=== PATIENT | male | born 1970 | race African-American/Black ===

== ENCOUNTER 2016-10-31 07:00 | Inpatient (IN) | payer OTHER ==
[2016-10-31] VITALS (34 sets, daily range): BP systolic 86–143; BP diastolic 59–89; PULSE 68–96; RESP 15–22; O2SAT 94–100
[~2016-10-31] VITALS: Ht 172.7 cm; Wt 94.2 kg
--- NOTE | 2016-10-31 06:53 | ED.REPORT ---
HPI-Chest Pain 40 and Over Date of Service Oct 31, 2016 ED Provider: Brien Lord MD Pt is a 46 y.o. male who presents to the ED via EMS c/o severe chest pain upon waking up. EMS administered 4000 units Heparin, 8mg Morphine, 324mg ASA, 300 ml NS, and Plavix en route. Upon arrival to the ED pt states pain is improved and currently rates it at 6/10. He reports associated SOB due to pain. Pt denies any cardiac hx, he does state he is an everyday current smoker. who accompanies pt reports that he is an everyday ETOH user and may have withdrawal sx. Nursing Notes Stated Complaint: CHEST PAIN Nursing Notes Reviewed: Yes Allergies: Coded Allergies: No Known Allergies (Unverified , 10/31/16) General Time Seen by MD: 06:53 Chief Complaint Chest pain Hx Obtained From: Patient, Spouse, EMS Arrived By: Ambulance Sudden in Onset?: Yes Onset Occurred: Just prior to arrival Context of Onset: Sleeping Symptom Duration: Since onset Severity: Current: Pain level 6 out of 10 Severity: Maximum: Severe Similar Sx Previous: No Past Medical History Past Medical History None reported Denies: Congestive heart failure, Coronary artery disease Denies: Kidney disease Past Surgical History None reported Smoking History Current Every Day Smoker Social History Alcohol Use: 3-5 per day Other Social History: Ambulatory Status Independent Review of Systems Constitutional: Denies: Fever Respiratory: Reports: Shortness of breath Cardiovascular: Reports: Chest pain GI: Denies: Vomiting Complete sys rev & neg: except as marked. Physical Exam Initial Vital Signs Vital Signs (First) Date Time Temp Pulse Resp B/P Pulse Ox O2 Delivery O2 Flow Rate FiO2 10/31/16 07:00 96 22 143/86 100 Nasal Cannula 2 10/31/16 08:45 36.7 Initial VS: Reviewed Head / Eyes: Atraumatic, Normocephalic Extremities: Vascular intact, Neuro intact Neurologic: Alert, Oriented, Nonfocal Psychiatric: Mood/affect normal, Behavior normal, Normal thought content General/Constitutional: Awake, Alert, Well appearing, Well developed, Well hydrated, Well nourished, Not toxic appearing Behavior: Positive: Anxious Respiratory / Chest: Atraumatic, Breath sounds NL, Breath sounds = bilat, No respiratory distress Cardiovascular: Heart rate NL, Peripheral circulation NL Abdomen: Atraumatic, No distention Skin: Atraumatic, No rash, Warm, Intact Color / Condition: Positive: Diaphoresis present Interpretation & Diagnostics Lab Results Interpretation Result Diagram: 10/31/16 0700 10/31/16 0700 Test 10/31/16 07:00 White Blood Count 12.0th/mm3 (3.8-10.1) Red Blood Count 4.71mil/mm3 (4.40-5.80) Hemoglobin 14.7g/dL (13.8-17.2) Hematocrit 43.7% (41.0-50.0) Mean Corpuscular Volume 92.8fL (81-100) Mean Corpuscular Hemoglobin 31.2pg (27.0-35.0) Mean Corpuscular Hemoglobin Concent 33.6% (32.0-37.0) Red Cell Distribution Width 14.1% (12.3-15.4) Platelet Count 243bil/L (150-400) Neutrophils (%) (Auto) 72.4% (40-74) Lymphocytes (%) (Auto) 17.6% (14-46) Monocytes (%) (Auto) 8.8% (4-12) Eosinophils (%) (Auto) 0.7% (0-5) Basophils (%) (Auto) 0.2% (0-3) Prothrombin Time 10.7sec (8.1-12.5) Prothromb Time International Ratio 1.00ratio Sodium Level 141mEq/L (134-144) Potassium Level 3.8mEq/L (3.5-5.2) Chloride Level 105mEq/L (97-108) Carbon Dioxide Level 19mmol/L (18-29) Blood Urea Nitrogen 11mg/dL (6-24) Creatinine 1.15mg/dL (0.76-1.27) Estimat Glomerular Filtration Rate 72mL/min (>59) Glucose Level 92mg/dL (60-99) Calcium Level 9.3mg/dL (8.5-10.1) Magnesium Level 2.2mg/dL (1.6-2.6) Total Bilirubin 0.4mg/dL (0.0-1.2) Aspartate Amino Transf (AST/SGOT) 35U/L (0-50) Alanine Aminotransferase (ALT/SGPT) 22U/L (0-44) Alkaline Phosphatase 88U/L (25-150) Troponin T < 0.010ug/L (0.0-0.011) Total Protein 7.1g/dL (6.4-8.4) Albumin 4.1g/dL (3.4-5.0) Hold Seymour Top Tube Received (Received) Digoxin Level 0.3nG/mL (0.9-2.0) ECG Interpretation Time: 07:00 Interpreted by: ED physician Normal ECG Interpretation: Normal rate (89) Abnormal T wave or ST segment: STEMI inferior wall Re-Eval/Medical Decision Source of Hx: Old records Consultation : Referral / Consult Name: Toi Bello MD Consulted With: Cardiology Call Returned at: 07:12 Teacher Hearing Impaired: Requested field laboratory operator, Accepts admit Note: Consulted with Dr. Bello who reviewed pt's EKG's. Dr. Bello will take the pt to the field laboratory operator. Counseled Regarding: Diagnosis, Need for admission Discharge & Departure Primary Impression: STEMI (ST elevation myocardial infarction) Involved coronary artery: unspecified coronary artery Qualified Code: I21.3 - ST elevation (STEMI) myocardial infarction of unspecified site Disposition: ADMITTED TO HOSPITAL Discharge Condition All VS Reviewed: Yes Condition: Improved Crit Care Except Billable Proc Time Spent: 30-74 minutes Services Performed: Patient management by me, Time spent at bedside, Reviewing test results, Discussing patient care, Documentation in record, Time with fam/ surrogate Scribe Attestation Portions of this note were transcribed by Alissa Lucas. I, Dr. Lord personally performed the history, physical exam and medical decision-making; I reviewed and confirmed the accuracy of the information in the transcribed note. Signed by: Dayami Mijares, 10/31/16 and 0833. Brien Lord MD Oct 31, 2016 06:53 ALISSA LUCAS Oct 31, 2016 07:12
[~2016-10-31 07:00] MED LIST: Heparin 25,000 Unit/500 mL 0.45% NS Premix IV ONE; Heparin 5,000 Unit/mL Inj ONE
[2016-10-31] MEDS ORDERED: Heparin 1,000 Units/500 mL NS Premix IV ONE (07:04)
[2016-10-31] MEDS ORDERED: Phenylephrine/NS-PF 100 mCg/mL 5 mL Syringe IVPUSH ONE (07:04)
[2016-10-31] MEDS ORDERED: Nitroglycerin 50,000 mcg/250 mL D5W Premix IV ONE (07:04)
[2016-10-31] MEDS ORDERED: Heparin 1,000 Unit/mL 10 mL Inj ONE ×2 (07:04→07:05)
[2016-10-31] MEDS ORDERED: 0.9% Sodium Chloride 2,000 ML ONE (07:04)
[2016-10-31] MEDS ORDERED: Atropine 1 mg/10 mL (Code) Syringe ONE (07:04)
[2016-10-31] MEDS ORDERED: Heparin 1,000 Units/mL 10 mL DVT/PE Bolus Inj IVPUSH ONE (07:05)
[2016-10-31 07:16] LABS: BASOPHILS % (AUTO) 0.2 % (0-3); EOSINOPHILS % (AUTO) 0.7 % (0-5); MONOCYTES % (AUTO) 8.8 % (4-12); Mean Corpuscular Hemoglobin 31.2 pg (27.0-35.0); Mean Corpuscular Volume 92.8 fL (81-100); NEUTROPHILS % (AUTO) 72.4 % (40-74); Platelet Count 243 bil/L (150-400)
[2016-10-31 07:59] LABS: Magnesium 2.2 mg/dL (1.6-2.6)
[2016-10-31 08:00] LABS: TROPONIN T < 0.010 ug/L (0.0-0.011)
--- NOTE | 2016-10-31 08:50 | NUR ---
Arrival to CCU Pt escorted from lab assistant to room 2018. Denies pain at time of arrival to unit. SR with infrequent PVCs per groundwater monitoring technician. Pressure stable. Rt femoral arterial line in place. No s/s of active bleeding. Pulses intact. Patient oriented to room and call light. Activity restrictions and plan of care reviewed at bedside. Will continue to monitor.
[2016-10-31] MEDS ORDERED: 0.9% Sodium Chloride 400 ML (4 HRS) IV ONE (09:15)
[2016-10-31] MEDS ORDERED: Ondansetron 2 mg/mL 2 mL Inj IVPUSH PRN (09:15)
[2016-10-31] MEDS ORDERED: 0.9% Sodium Chloride 250 ML BOLUS IV PRN (09:15)
[2016-10-31] MEDS ORDERED: Sodium Chloride LOK Flush 10 mL Syringe IVFLUSH PRN (09:15)
[2016-10-31] MEDS ORDERED: Atropine 1 mg/10 mL (Code) Syringe IVPUSH PRN (09:15)
--- NOTE | 2016-10-31 10:53 | CS94 ---
[address] [address] DIAGNOSTIC CARDIAC CATHETERIZATION PATIENT: TRISTAN SARGENT : 1970 MR#: [id number] ADMIT: 10/31/2016 JOB ID: [id number] PROCEDURE NOTE-CARDIAC CATHETERIZATION LABORATORY: SERVICE DATE: Monday, October 31, 2016. STOCK RAISER: Toi Bello M.D. PROCEDURES: 1. Coronary angiogram--emergent. 2. Left heart catheterization (LHC)--pressure measurement. 3. Percutaneous coronary intervention (PCI): a. Stent of mid RCA--a Xience 2.5 x 18 mm RICK (drug-eluting stent); post dilated to 2.75 mm. CLINICAL DETAILS: This 46-year-old man with no prior history of heart disease; but with underlying coronary risk factors including current cigarette smoking--awoke with very severe retrosternal chest discomfort about 5-1/2 hours prior to presentation to this hospital by EMS transport. He had ongoing nitngqcn-vg-[id number] chest discomfort; and ECG shows inferior ST elevation with confirmatory reciprocal lateral ST depression. He was otherwise clinically stable. PROCEDURAL DETAILS: I evaluated him emergently in the emergency department. I discussed our findings, impressions and management considerations including recommendation to proceed emergently to cardiac catheterization for definitive diagnosis of anticipated coronary disease and to guide management or treatment decisions including medical therapy, anticipated PCI or coronary bypass surgery if needed. We discussed the procedure including possible risks and complications. We discussed bleeding, infection and blood clots; as well as injury to nerve, artery, vein or kidney; and also arrhythmia, drug reaction; or others. We discussed treatment as needed that might include surgery, pacemaker, transfusion. We discussed more serious complications that are possible including stroke, heart attack, cardiac arrest, and emergency surgery including transfer for coronary bypass. We discussed stents including stent failure and repeat PCI procedures that may be needed; and also critical importance of dual antiplatelet therapy. He is a candidate for RICK. After questions and discussion, he signed informed consent to proceed. He was brought to the catheterization laboratory where he was prepped sterilely and draped for the procedure. He had received ECASA and a heparin bolus IV; and Plavix 300 mg p.o. CORONARY ANGIOGRAM: Arterial access was obtained without difficulty in the right common femoral artery using fluoroscopic localization over the femoral head; and modified Seldinger technique to insert a 10 cm 6-Tamazight side-arm sheath. Catheters were advanced and exchanged over a long 0.035 inch J tipped guidewire. For coronary angiography, the right coronary artery was first engaged with a 6-Tamazight JL-4 guide catheter. At the end of the procedure, the left coronary artery was imaged using a 6-Tamazight JL-4 diagnostic catheter. LHC: The JR-4 catheter across the aortic valve incidentally into the left ventricle and pressures were measured. No LV angiogram done. PCI of mid RCA: The diagnostic images were reviewed. Decision was made to proceed emergently with revascularization of the subtotally, occluded mid RCA culprit lesion (99% lesion; ORIANA 1-2 flow). For intervention he was given an additional loading dose of Plavix 300 mg (600 mg Plavix loading dose total). Bolus IV heparin was used to achieve therapeutic ACT. Aliquots of NTGIC were used during the procedure. For intervention, the 6-Tamazight JR-4 guide was used. The lesion was crossed without difficulty with a BMW wire--0.014 inches x 190 cm--which was placed distally in the right coronary artery. PREDILATATION: The lesion was predilated with a Trek balloon--2.5 x 15 mm--inflated to 8 atmospheres. Flow in the artery was improved. STENT: Next the lesion was treated with a Xience Alpine RICK--2.5 x 18 mm--deployed across the lesion at 18 atmospheres. POSTDILATATION: The stented segment was post dilated with a noncompliant Trek NC balloon--2.5 x 12 mm--inflated twice within the stented segment to 22 atmospheres. Completion angiograms show an excellent angiographic result with ORIANA-3 flow restored including a strong myocardial blush; no residual lesion; and no angiographic complication evident. PROCEDURE WITHOUT DIFFICULTY: Patient tolerated procedure well. No complication. A side-arm sheath angiogram showed a very high bifurcation of the common femoral artery nearly at the upper border of the femoral head including arterial access in the profunda artery. Arterial hemostasis was deferred and the sheath was sutured in place to be maintained to flush an arterial pressure transducer until removed when ACT less than 180 seconds. The patient was transferred from the catheterization laboratory having become chest pain free when the artery was opened; and in critical but now stable condition for transfer to the CCU unit for ongoing care. I discussed the procedure, findings and recommendations with the patient and with his fiancee. FINDINGS: LMCA: Normal. The left main coronary artery is a short vessel with no angiographic obstructive disease. LAD: Intact. The left anterior descending coronary artery is a zzelukax-zc-pwakn size transapical vessel with mild diffuse atherosclerotic plaquing but no angiographic obstructive lesions. LCX: Normal. The left circumflex artery is a large artery with no evident disease. Its distribution includes three small obtuse marginals and a distal copfqhaw-by-vopoa LPL branch. RCA: Dominant. 99% tubular mid RCA lesion with ORIANA 1-2 flow is present. When revascularized, the right coronary artery distribution includes a medium-sized PDA and a medium-sized RPL branch. LHC: LVED 35 mmHg; SBP 100 mmHg with no systolic gradient on pullback across the aortic valve. CONCLUSIONS: 1. PCI of mid RCA--Xience Alpine RICK 2.5 x 18 mm; post dilated to 2.75 mm at high pressure. 2. ACS--acute inferior STEMI; including subtotal culprit subtotal mid RCA occlusion. 3. CORONARY ARTERY DISEASE (CAD)--single vessel CAD of mid RCA. RECOMMENDATIONS: 1. ECASA--indefinitely. 2. Plavix--plan one year if well tolerated including ongoing cardiology followup. I discussed with the patient and his family the critical importance of mandatory dual antiplatelet therapy; and not to stop Plavix for any reason without immediate Cardiology consultation. 3. ECHOCARDIOGRAM. 4. OMT--guideline directed optimal medical therapy for coronary disease; and for underlying coronary risk factors; including aspirin, Plavix statin, beta-ary, consideration of RASHI inhibitor. We also discussed smoking cessation.
--- NOTE | 2016-10-31 11:22 | HP ---
[address] [address] HISTORY AND PHYSICAL PATIENT: TRISTAN SARGENT : 1970 MR#: [id number] ADMIT: 10/31/2016 JOB ID: [id number] CARDIOLOGY ADMISSION HISTORY AND PHYSICAL--INITIAL CRITICAL CARE EVALUATION (EMERGENCY DEPARTMENT): DATE OF EVALUATION: Monday, October 31, 2016. ADMITTING PHYSICIAN: Cardiology--Toi Bello M.D. PROBLEMS: 1. Acute coronary syndrome (ACS): a. Chest pain--severe ongoing retrosternal chest tightness; ischemic time 5-1/2 hours from onset. b. STEMI--acute inferior myocardial infarction CAD RISK FACTORS: No history of treated hypertension. No history of treated hyperlipidemia. No history of diabetes. Cigarettes--Current smoker 1/2 to 1 pack per day. No family history of premature coronary disease. CHIEF COMPLAINT: Called for "STEMI activation." Chest pain. Abnormal ECG with STEMI inferior. HISTORY OF PRESENT ILLNESS: PRESENTATION: I was called by the emergency department physician regarding this 46-year-old man after they were just notified that he was in transit by EMS from an outside hospital with ongoing chest pain and ST elevation on ECG. I evaluated him emergently shortly after his arrival in our emergency department. He has ongoing chest discomfort that he rates intensity 5 on a scale of 10--but it is clear he has severe discomfort. 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 The first onset of illness was 1:30 this a.m. when he was awoken with a "gas bubble in my chest." He went to the bathroom where he became severely ill and "I didn't think I was going to make it." There was radiation of pressure-like chest discomfort into his neck and profuse diaphoresis and nausea and shortness of breath and dizziness. Pre-hospital treatment included ASA and MSO4 and NTG twice. He rates his pain as moderate now. In our emergency department, he received heparin IV bolus once and further MSO4. CARDIAC HISTORY: He tells me he has not had any prior anginal symptoms and he has no symptoms of heart failure including exertional dyspnea, nocturnal dyspnea or edema. He has no history of arrhythmia and no definite history of arrhythmic symptoms although he tells me he occasionally has fleeting palpitations and what he considers occasional episodes of dizziness but never syncope. Regarding other possible underlying vascular disease, there is no history of CVA or current symptoms of TIA. No claudication. Regarding possible dual antiplatelet therapy, he tells me he would be reliable to take mandatory medicines if needed; he has no current bleeding symptoms; and he has no anticipated upcoming surgery. ALLERGIES: No known drug allergies. He reports no known allergy to contrast media; or to fish, seafood, iodine or shellfish. MEDICATIONS: He takes no medicines normally. PAST MEDICAL HISTORY: He tells me he is generally healthy and is not aware of any underlying medical problems. REVIEW OF SYSTEMS: I questioned him and his fiancee in the emergent setting about a 13 point review of systems which is unremarkable, noncontributory or negative except as noted including: No constitutional symptoms. No history of a thyroid disorder. No history of a lung disorder including no history of asthma, wheezing, COPD, emphysema or chronic dyspnea. Cardiac--no history of murmur or rheumatic fever. GI--no history of hepatitis, ulcer, jaundice or indigestion. PERSONAL AND SOCIAL HISTORY: CIGARETTES--he smokes "heavily"; about a half to a pack of cigarettes a day for unknown duration. ALCOHOL--his fibille tells me that he drinks part of a fifth of alcohol a night after a hard day's work and because of back pain. He has never had sequelae of alcohol use that they are aware of including no history of withdrawal. FAMILY--his deriane is here. WORK--he is a computer analyst supervisor and works vigorously. FAMILY HISTORY: He reports no family history of premature coronary disease. PHYSICAL EXAMINATION: GENERAL APPEARANCE: A very pleasant, robust man who appears to be in severe pain despite his description of only moderate discomfort. VITAL SIGNS: Blood pressure initially 143/86 with heart rate 96, regular in sinus rhythm on telemetry. Respiratory rate 20 and unlabored. Pulse oximeter 100% on nasal cannula 2 L. Weight 190 pounds, afebrile. NEUROLOGIC AND MENTAL STATUS: No overt focal neurologic defect noted. He is alert, oriented, appropriate and conversant. HEENT: PERRL. Conjunctivae pink. Sclerae not icteric. Mouth and mucous membranes intact with Mallampati 4. NECK: Carotid upstroke intact bilaterally without bruit. Jugular venous pressure unremarkable. Examined sitting up. No palpable thyromegaly. No palpable cervical lymphadenopathy. LUNGS: Lungs clear to auscultation bilaterally including with forced expiratory time. CARDIAC: No chest wall tenderness. Heart examination notable for a regular rhythm, S4, and there is no loud murmur heard. ABDOMEN: Somewhat obese, but otherwise unremarkable examination without tenderness, mass, hepatosplenomegaly or bruit of abdominal aortic aneurysm. EXTREMITIES: No edema. Pedal pulses intact bilaterally at the dorsalis pedis and posterior tibial except the right dorsalis pedis not palpable. DIAGNOSTIC STUDIES: ELECTROCARDIOGRAM: I reviewed the pre-hospital EMS ECG and the initial ECG in our ED. They show sinus rhythm at 85 BPM with 2-[address] elevation inferiorly with confirmatory reciprocal ST depression in leads I and aVL. There is also subtle precordial ST flattening/depression in V1-3. CHEST X-RAY: The x-ray machine did not work. LABORATORY: CBC includes WBC 12,000 with hemoglobin 14.7, hematocrit 43.7, normal indices, and platelet count 243,000. Inexplicably digoxin level 0.3. INR 1. Chemistries include potassium 3.8, BUN 11, creatinine 1.15, estimated GFR 72. Blood sugar 92, magnesium 2.2. LFT unremarkable. Troponin less than 0.010. TSH 1.410 with free T4 1.60 (noting his apparent proptosis on examination). ASSESSMENT: I discussed the findings, impressions and management considerations with him and his fiancee and with the emergency department staff including: Acute coronary syndrome with inferior STEMI and ongoing severe chest pain: The clinical scenario is classic for acute myocardial infarction. He is clinically stable otherwise. I discussed with him and his fiancee the impression of the recommendation to proceed emergently with a coronary angiogram for definitive diagnosis of highly likely CAD with right coronary artery culprit; and to guide therapy including medical therapy, anticipated PCI; or transfer for coronary bypass if needed. We discussed the procedure including possible risks and complications. PLAN: 1. Cardiac catheterization and anticipated PCI--emergent. 2. Echocardiogram. 3. OMT--guideline directed optimal medical therapy for his underlying risk factors including cigarette smoking cessation; and for anticipated CAD. 4. He has no regular medical care; and we discussed the importance of establishing ongoing primary medical care as well as cardiology followup.
--- NOTE | 2016-10-31 13:23 | DRSVH ---
PROCEDURE: X-RAY CHEST ONE VIEW, PORTABLE ([id number]) INDICATIONS: PORT TECHNIQUE: One view of the chest was acquired. COMPARISON: None. FINDINGS: Surgical changes and devices: None. Lungs and pleura: No pleural effusions or pneumothorax. Lungs are clear. Mediastinum: Mediastinal contours appear normal. Heart size is normal. Bones and chest wall: No suspicious bony lesions. Overlying soft tissues appear unremarkable. IMPRESSION: 1. No acute cardiopulmonary disease. Dictated by: Torres Pratt M.D. on 10/31/2016 at 13:18 Approved by: Torres Pratt M.D. on 10/31/2016 at 13:22
[2016-10-31] MEDS ORDERED: IBUP800T28 PO (15:26)
--- NOTE | 2016-10-31 15:26 | DRSVH ---
[facility] [address] [place] [address] Echocardiogram Report Name: TRISTAN SARGENT Study Date: 10/31/2016 Height: 68 in Hospital Exam Location: [facility] Weight: 190 lb Gender: Other BSA: 2.0 m2 : 1970 Age: 46 yrs BP: 135/84 mmHg Referring Physician: BRIAN HURT Interpretation Summary Normal sinus rhythm. Normal LV size, wall thickness and LV systolic function. EF is 55-60%. There is subtle inferoseptal hypokinesis; otherwise normal wall motion throughout. No significant valvular abnormalities. Borderline LA enlargement; otherwise normal chamber sizes. No prior echocardiogram available for comparison. Procedure: A two-dimensional transthoracic echocardiogram with color flow and Doppler was performed. The study quality was technically adequate. There is no prior echocardiogram noted for this patient. The patient was in normal sinus rhythm during the exam. Left Ventricle: The left ventricle is normal in size. There is normal left ventricular wall thickness. The ejection fraction is estimated to be 55-60%. subtle inferoseptal hypokinesis. Assessment of diastolic parameters indicates normal left ventricular diastolic function and normal filling pressures. Right Ventricle: The right ventricle grossly appears normal in size with probable normal systolic function. Atria: Borderline left atrial enlargement. Right atrial size is normal. The interatrial septum is intact with no evidence for an atrial septal defect. Mitral Valve: The mitral valve is normal in structure and function. Aortic Valve: The aortic valve is trileaflet. The aortic valve opens well. Tricuspid Valve: The tricuspid valve is normal in structure and function. There is a trace or physiologic amount of tricuspid regurgitation. The right ventricular systolic pressure is estimated at 26 mmHg assuming a right atrial pressure of 3 mm Hg. Pulmonic Valve: The pulmonic valve is normal in structure and function. There is trace pulmonic regurgitation. Great Vessels: The aortic root is normal size. The dimensions of the ascending aorta are normal. The IVC is of normal diameter and collapses greater than 50% with a sniff. This suggests a low right atrial pressure of 3 mm Hg. Pericardium/ Pleura There is no pericardial effusion. There is no pleural effusion. MMode/2D Measurements & Calculations LVIDd: 5.3 cm LA dimension: 4.1 cm RA long axis Ao root diam LVIDs: 3.7 cm FS: 29.2 % LA A2 area: 17.7 cm RA area Aortic Jxn: 3.1 cm IVSd: 0.91 cm LA A4 area: 19.5 cm Ao Arch Diam (Prox LVPWd: 0.82 cm LA length (vol) : 16.3 cm Trans): 2.6 cm RA vol LA vol: 59.4 ml : 43.6 ml LA vol index RA : 21.8 mm2 : 29.7 ml/m2 LV marcano. diameter/BSA LV sys. diameter/BSA (cm/m^2): 2.6 (cm/m^2): 1.9 Doppler Measurements & Calculations Ao V2 max MV E max garcia MV E/A: 1.4 TR max garcia : 144.3 cm/sec : 112.8 cm/sec Med Peak E' Garcia : 243.5 cm/sec Ao max PG MV A max garcia TR max PG : 8.3 mmHg : 79.4 cm/sec E/E' med: 13.7 : 23.7 mmHg Ao mean PG MV P1/2t: 49.2 msec Lat Peak E' Garcia PA V2 max : 4.3 mmHg : 72.2 cm/sec E/E' lat: 11.4 PA mean PG E/e' average: 12.6 MV A dur: 0.11 sec PA Accel Time : 0.12 sec MV dec time MV P1/2t max garcia Ao V2 mean PA V2 mean : 0.17 sec : 97.3 cm/sec : 50.8 cm/sec Ao V2 VTI: 26.9 cm MVA(P1/2t): 4.5 cm2 Reading Physician:03:25 PM
--- NOTE | 2016-10-31 18:43 | NUR ---
Cardiac/pain Right femoral site without complications. Site remains painless, with no sign of active bleeding or hematoma. Pulses intact. Patient denies chest discomfort. SR per monitor technician. 3 to 4 beat run of VT noted earlier this afternoon, pt asymptomatic. Normotensive. Tolerating diet. Family remains at bedside. Continue to address financial concerns prior to discharge.
[2016-10-31] MEDS ORDERED: Influenza (Adult) Vaccine 0.5 mL Syringe IM ONE (20:30)
--- NOTE | 2016-10-31 23:21 | NUR ---
Transfer note: Pt right groin site soft with no drainage seen. Area is tender to palpation and bruised. 2129 pt up out of bed with out any problems. 2229 Dr Bello was paged and orders received to transfer pt to [facility] with tele. Report given to Ellen FORRESTER.
[2016-11-01 03:03] VITALS: BP 116/77; PULSE 74; RESP 22; O2SAT 93
[2016-11-01 04:49] LABS: Mean Corpuscular Hemoglobin 31.1 pg (27.0-35.0); Mean Corpuscular Volume 93.9 fL (81-100)
--- NOTE | 2016-11-01 06:31 | NUR ---
Patient education Discussed smoking cessation and anxiety/stress management with patient and family. Also discussed and answered questions about lifestyle changes including heart healthy diet. Pt and stated understanding. Addendum: 11/01/16 at 0633 by EVERARDO JERONIMO RN Nicotine patch requested by pt. Dr. Bello paged and orders received.
[2016-11-01 08:00] VITALS: BP 112/75; PULSE 68; RESP 18; O2SAT 95
--- NOTE | 2016-11-01 09:24 | NUR ---
Social Work Note: Scree Note Data& Assessment: EMR reviewed. Lia Esparza is a 46 year old male admitted on 10/31/2016for STEMI. Pt is listed as self pay and per [facility] documentation, pt is not eligible for state insurance. Pt does not have a PCP at this time either. Pt lives in [place] with his family. Pt is currently a 1PA in his room. SW to follow up with pt regarding baseline ambulation and strength, insurance coverage and PCP. SW to continue to follow. Plan: Anticipated discharge home via POV when medically ready. SW to follow up with pt regarding baseline ambulation and strength, insurance coverage and PCP. SW to continue to follow. GALLO Argueta
[2016-11-01 11:45] VITALS: BP 140/88; PULSE 85; RESP 20; O2SAT 98
--- NOTE | 2016-11-01 11:46 | NUR ---
Social Work Note: Continued Discharge Planning Data& Assessment: SW met with pt and pt family at bedside to assess for any unmet needs. Pt confirmed that he does not have a PCP provider and he is in the process of moving to [place] with his family and would like to find a provider here in town. Pt also confirmed that he does not have insurance. Pt explained that "I've never been sick before, so I never got insurance." Pt explained that when he did try to look into obtaining insurance coverage, open enrollment had already passed. Pt has not been screened by [facility] for Medicaid eligibility at this time since it is the weekend. SW provided pt and pt family with [employer] contact information for further aid in obtaining insurance coverage or at least be more informed about which insurance to sign up for this fall during open enrollment. SW provided pt with financial assistance application. Pt family has concerns regarding prescription costs. Pt family stated they have informed the MD. SW also provided information on the $4 medication list to reference in order to advocate for generic brands if possible. SW provided information on the [facility]. The clinic is closed today. If pt is still hospitalized tomorrow (Wednesday), SW to inquire about the possibility of pt obtaining a PCP appointment at [facility]. Pt and pt family deny any other need at this time. SW to continue to follow. Plan: Anticipated discharge home via POV when medically ready. SW to follow for [employer] screening for Medicaid eligibility. SW to also follow up with pt and [facility] regarding the possibility of pt obtaining a PCP appointment prior to DC. Pt and pt family deny any other need at this time. SW to continue to follow. GALLO Argueta
--- NOTE | 2016-11-01 14:11 | PCM.DIMED ---
Discharge Instructions Date of Service Nov 01, 2016 Dates of Hospitalization Oct 31, 2016 at 09:05 Discharge Diagnosis Discharge Diagnosis Heart Attack due to coronary artery disease was treated with a Drug Coated Stent. Also High Blood Pressure; and high colesterol. Medication Instructions New medicines are important as we discussed. Especially Plavix is mandatory as we discussed. Diet Heart Healthy Activity Limited until seen by PCP Call your provider Shortness of breath, Chest pain Patient Instructions Follow-up Provider: [facility] includes the [facility] Follow-up with PCP in: 1 week [facility] Follow-up in: 1 week Toi Bello MD Nov 01, 2016 14:11
[2016-11-01] MEDS ORDERED: CLOP75TA28 PO (14:16)
[2016-11-01] MEDS ORDERED: METO25TA6 PO (14:16)
[2016-11-01] MEDS ORDERED: NICO1PAT5 TOPICAL (14:16)
[2016-11-01] MEDS ORDERED: ATOR40TA69 PO (14:16)
[2016-11-01] MEDS ORDERED: ASPI81TA3 PO (14:16)
--- NOTE | 2016-11-01 15:27 | NUR ---
Discharge The pt left the unit with all his belongings and discharge packet of info at 1525. He left on foot with his , who will be transporting him home via private vehicle. The pt left A&Ox3, with all vitals WNL. His groin cath site was WNL. The pt verbalized understanding of all educational materials presented; including follow up appointment info and new script info.
--- NOTE | 2016-11-25 14:47 | DIS ---
[address] [address] DISCHARGE SUMMARY PATIENT: TRISTAN SARGENT : 1969 MR#: [id number] ADMIT: 10/31/2016 JOB ID : [id number] DIS: 11/01/2016 DISCHARGE SUMMARY--CARDIOLOGY INPATIENT SERVICE: DATE OF ADMISSION: Monday, October 31, 2016. DATE OF DISCHARGE: Tuesday, November 01, 2016. DISCHARGE DIAGNOSES: 1. ACS (Acute Coronary Syndrome) with acute inferior myocardial infarction( STEMI). 2. PCI (Percutaneous Coronary Intervention) of culprit infarct-related mid right coronary artery (subtotal lesion) with Xience 2.5 x 18 mm RICK (drug-eluting stent); post dilated to 2.75 mm. 3. Cigarette smoking. DISCHARGE SUMMARY AND HOSPITAL COURSE: This 46-year-old man had no prior history of known heart disease and no known underlying coronary risk factors except ongoing cigarette smoking when he presented by EMS transport to the emergency department from an outside hospital with ongoing chest pain of 5-1/2 hours ischemic time; as well as ecg showing inferior ST elevation with confirmatory reciprocal ST depression. He had very severe chest discomfort and associated autonomic symptoms. He was otherwise clinically stable. He underwent emergent cardiac catheterization with coronary angiogram that identified a culprit subtotal 99% mid right coronary artery lesion with ORIANA 1-2 flow. He underwent revascularization with a Xience 2.5 x 18 mm drug-eluting stent. His hospital course thereafter was satisfactory. He felt well and wanted to leave the hospital the next day. I discussed the findings, impressions and ongoing management considerations including medications, medical follow-up, and "activity, prescription" with him at length prior to leaving. We discussed the critical importance of mandatory dual-antiplatelet therapy including not to stop Plavix for any reason for one year without immediate cardiology consultation. We discussed the importance of a cardiac rehab program if possible; and we discussed an exercise "prescription" including moderate common sense, stepwise, progressive symptom-limited activities; and to have followup for any symptoms that occur. We discussed the importance of follow-up with a primary physician; and we helped obtain primary care follow-up. We discussed the importance of cardiology followup. DISCHARGE MEDICATIONS: 1. ECASA 81 mg daily. 2. Atorvastatin 40 mg q.h.s. 3. Plavix 75 mg daily -- Plan 1 year if well tolerated including ongoing cardiology follow-up. 4. Metoprolol tartrate 12.5 mg b.i.d. -- To plan to up-titrate; and switch to long-acting once a day regimen. 5. Nicotine 14 mg/24 h patch -- We discussed the critical importance of cigarette smoking cessation. 6. Consider RASHI inhibitor -- Note echo showed intact LV systolic function with estimated ejection fraction of 55% to 60% with only subtle inferoseptal hypokinesis without wall motion defect otherwise noted. FOLLOW-UP: 1. Primary care physician -- Early follow-up as arranged with [facility] in one week. 2. Follow-up with Cardiology Clinic -- in one week. DISPOSITION: Home. Do not lift more than 10 pounds for one week after catheterization; and limit activity until seen by physicians in follow-up. MTDD
== END 2016-11-01 15:25 | disposition home or self-care (01) | DRG 247 ==
LOC: SED 07:00 → CCU 09:05 → PCC 22:40
PROVIDERS: ADMIT Internal Medicine Cardiovascular Disease; ATTEND Internal Medicine Cardiovascular Disease
PROC: 027034Z Dilation of Coronary Artery, One Artery with Drug-eluting Intraluminal Device, Percutaneous Approach (ICD-10-PCS; principal; 2016-10-31)
PROC: B211YZZ Fluoroscopy of Multiple Coronary Arteries using Other Contrast (ICD-10-PCS; 2016-10-31)
PROC: 4A023N7 Measurement of Cardiac Sampling and Pressure, Left Heart, Percutaneous Approach (ICD-10-PCS; 2016-10-31)
DX: I21.19 ST elevation (STEMI) myocardial infarction involving other coronary artery of inferior wall (principal); F17.210 Nicotine dependence, cigarettes, uncomplicated; I25.10 Atherosclerotic heart disease of native coronary artery without angina pectoris; I24.9 Acute ischemic heart disease, unspecified